=== PATIENT | female | born 1970 | race Caucasian/White ===

== ENCOUNTER 2020-04-08 14:42 | Emergency (ER) | payer MEDICAID ==
[~2020-04-08] VITALS: Ht 160 cm; Wt 65.5 kg
[2020-04-08 15:51] LABS: BASOPHILS % (AUTO) 0.5 % (0.0-2.0); EOSINOPHILS % (AUTO) 2.4 % (1.0-6.0); HEMATOCRIT 42.8 % (36-46); HEMOGLOBIN 14.5 g/dL (12.0-16.0); LYMPHOCYTES # (AUTO) 2.1 K/uL (1.0-4.8); LYMPHOCYTES % (AUTO) 31.2 % (22.0-44.0); MEAN CORPUSCULAR HEMOGLOBIN 30.7 pg (26.0-34.0); MEAN CORPUSCULAR HGB CONC 33.9 G/dL (31.0-37.0); MEAN CORPUSCULAR VOLUME 91 fL (80-100); MONOCYTES # (AUTO) 0.4 K/uL (0.1-1.0); MONOCYTES % (AUTO) 6.4 % (2.0-9.0); NEUTROPHILS % (AUTO) 59.5 % (40.0-70.0); PLATELET COUNT (AUTO) 199 K/uL (150-450); RED BLOOD CELL COUNT(AUTO) 4.73 MIL/uL (4.00-5.20); RED CELL DISTRIBUTION WIDTH 12.8 % (11.5-14.5)
[2020-04-08] MEDS ORDERED: SODIUM CHLORIDE 0.9% 100 ML ONE (15:54)
[2020-04-08] MEDS ORDERED: IOVERSOL 320 MG/ML 100 ML VIAL ONE (15:54)
[2020-04-08 16:18] LABS: ANION GAP 8 mmol/L (8-16); CALCIUM, TOTAL 8.8 mg/dL (8.8-10.5); CARBON DIOXIDE 26 mmol/L (22-29); CHLORIDE 106 mmol/L (98-107); CREATININE 0.76 mg/dL (0.60-1.30); GLOMERULAR FILTR. RATE CALC > 60 mL/min (>60); GLUCOSE,RANDOM 107 mg/dL (70-110); SODIUM SERUM 140 mmol/L (136-145); UREA NITROGEN, BLOOD 13 mg/dL (7-18)
[2020-04-08 16:24] LABS: ALANINE AMINOTRANSFERASE 23 U/L (12-78); ALBUMIN 3.7 g/dL (3.4-5.0); ALKALINE PHOSPHATASE 42 U/L (46-116); ASPARTATE AMINOTRANSFERASE 14 U/L (15-37); BILIRUBIN,TOTAL 0.2 mg/dL (0.1-1.0); LIPASE 96 U/L (73-393)
[2020-04-08 16:43] LABS: HCG,QUANTITATIVE < 1 mIU/mL (0-6)
[2020-04-08 18:54] LABS: APPEARANCE,URINE CLOUDY (CLEAR); BILIRUBIN,URINE NEGATIVE (NEGATIVE); GLUCOSE, URINE (UA) NEGATIVE (NEGATIVE); KETONES,URINE NEGATIVE (NEGATIVE); LEUKOCYTE ESTERASE ,URINE LARGE (NEGATIVE); NITRATE,URINE NEGATIVE (NEGATIVE); OCCULT BLOOD,URINE NEGATIVE (NEGATIVE); PROTEIN,URINE NEGATIVE (NEGATIVE); UROBILINOGEN,URINE 0.2 mg/dL (<=1.0)
[2020-04-08 19:09] LABS: BACTERIA,URINE Moderate /HPF (None Seen); RBC,URINE None Seen /HPF (0-2); SQUAMOUS EPITHELIAL CELL,UR Many /LPF (None Seen)
[2020-04-08 19:30] VITALS: BP 121/80
== END 2020-04-08 19:50 | disposition home or self-care (01) ==
LOC: EMS 15:22
DX: N39.0 Urinary tract infection, site not specified (principal); D25.9 Leiomyoma of uterus, unspecified; K52.9 Noninfective gastroenteritis and colitis, unspecified
CPT/HCPCS: 36415; 74177; 80053; 81001; 83690; 84702; 85025; 87086; 99285; J7050; Q9967

== ENCOUNTER 2022-09-07 12:10 | Emergency (ER) | payer MEDICAID, OTHER ==
[~2022-09-07] VITALS: Ht 167.6 cm; Wt 66.4 kg
[2022-09-07] MEDS ORDERED: LISI2.5T13 PO (12:25)
[2022-09-07 13:12] VITALS: BP 156/80
[2022-09-07] MEDS ORDERED: PROPARACAINE HCL 0.5% 15 ML OPHTHALMIC SOLUTION OD ONE (13:30)
[2022-09-07] MEDS ORDERED: FLUORESCEIN SODIUM 1 MG STRIP OD ONE (13:30)
== END 2022-09-07 14:05 | disposition home or self-care (01) ==
LOC: EMS 12:39
DX: H11.31 Conjunctival hemorrhage, right eye (principal); I10 Essential (primary) hypertension
CPT/HCPCS: 99281; 99283